=== PATIENT | female | born 1990 | race Caucasian/White ===

== ENCOUNTER → 2020-08-09 10:15 | Outpatient (CLI) | payer OTHER, SELFPAY ==
--- NOTE | ~2020-08-09 | US_ITS ---
EXAMINATION: US abdomen limited EXAM DATE: 08/09/2020 10:36 INDICATION: suspect cholecystitis, symptomatic gallstones. TECHNIQUE: Multiple grayscale and Doppler images of the abdomen right upper quadrant were obtained (b y a technologist who performed the scan) and subsequently reviewed. There is no prior study for judit rankin. FINDINGS: The pancreatic head and body are normal in appearance. The pancreatic tail is not visualized. There is echogenic liver parenchyma, hepatic steatosis. There are no focal liver lesions identified. Th ere is no evidence of intrahepatic biliary duct dilation. Portal venous flow was seen in the hepatop edal, normal direction and has normal Doppler waveform. No right-sided hydronephrosis. Common bile duct measures 4 mm, which is normal. The gallbladder wall is normal in thickness, with ex pected amount of distention. No sonographic evidence of pericholecystic fluid. There is no cholelit hiases. Technologist performing exam reports patient did not demonstrate sonographic Freitas's sign. Please note that this sign is less reliable in patients who have received pain medication. IMPRESSION: 1. Hepatic steatosis. Reviewed, dictated and finalized at location B. 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 Hepatic steatosis.
== END ==
PROVIDERS: PCP Family Medicine; Visit Provider Physician Assistant
DX: R10.11 Right upper quadrant pain (principal); K76.0 Fatty (change of) liver, not elsewhere classified
CPT/HCPCS: 76705

== ENCOUNTER 2020-08-26 07:39 | Outpatient (CLI) | payer OTHER, SELFPAY ==
--- NOTE | ~2020-08-26 | NM_ITS ---
NM hepatobiliary w pharm Procedure: Hepatobiliary scan performed following IV administration 5 mCi Tc 99m Choletec. At 60 min utes 2.3 mcg CCK administered IV for evaluation of gallbladder ejection fraction. Indication: Right upper quadrant abdominal pain Comparison: Ultrasound dated 08/09/2020 Findings: There is normal radiotracer uptake in the liver parenchyma with prompt excretion into the b iliary tract. Gallbladder visualized at 30 minutes. Small bowel visualized at 20 minutes. Gallbla dder ejection fraction measures 32 %. (normal is considered 10-90%, but most patients with gallbladde r dysfunction have GBEF of less than 35%) Impression: 1: Low gallbladder ejection fraction measuring 32%. Low GBEF is associated with gallbladder dysfunct ion, although not specific for acute or chronic cholecystitis. Reviewed, dictated and finalized at location B. Impression: 1: Low gallbladder ejection fraction measuring 32%. Low GBEF is associated wit h gallbladder dysfunction, although not specific for acute or chronic cholecyst itis.
== END 2020-08-26 07:40 | disposition home or self-care (01) ==
LOC: ANHIMG 07:41
PROVIDERS: PCP Family Medicine; Visit Provider Family Medicine
DX: R10.11 Right upper quadrant pain (principal); R10.13 Epigastric pain
CPT/HCPCS: 78227; A9537; J2805

== ENCOUNTER → 2020-09-12 02:49 | Outpatient (CLI) | payer OTHER, SELFPAY ==
[2020-09-12 19:42] LABS: SARS-CoV-2 RNA PCR Negative
== END ==
PROVIDERS: PCP Family Medicine; Visit Provider Surgery
DX: Z01.812 Encounter for preprocedural laboratory examination (principal); Z20.822 Contact with and (suspected) exposure to COVID-19
CPT/HCPCS: C9803; U0003; U0005

== ENCOUNTER 2020-09-12 09:32 | Outpatient (CLI) | payer OTHER, SELFPAY ==
[2020-09-12 10:43] LABS: Alanine Aminotransferase 24 U/L (4-35); Albumin Level 4.3 g/dL (3.5-5.1); Alkaline Phosphatase 79 U/L (38-126); Amylase 44 U/L (30-110); Aspartate Amino Transferase 24 U/L (14-36); Bilirubin,Total 0.2 mg/dL (0.2-1.3); Lipase 49 U/L (23-300)
== END 2020-09-12 09:33 | disposition home or self-care (01) ==
LOC: ANHSURGERY 09:35
PROVIDERS: PCP Family Medicine; Visit Provider Surgery
DX: Z01.812 Encounter for preprocedural laboratory examination (principal); K82.8 Other specified diseases of gallbladder
CPT/HCPCS: 36415; 80076; 82150; 83690; 86850; 86900; 86901

== ENCOUNTER 2020-09-15 00:43 | Day surgery (SDC) | payer OTHER, SELFPAY ==
[2020-09-07 11:39] VITALS: BMI 45.5
[2020-09-15] VITALS (23 sets, daily range): BP systolic 92–126; BP diastolic 51–72; PULSE 63–84; RESP 16–20; TEMP 36.3–37.1; O2SAT 97–100
[2020-09-15] MEDS: ACETAMINOPHEN 500 MG TABLET 1000 MG PO (10:17)
[2020-09-15] MEDS: LACTATED RINGERS 1,000 ML 30 ML IV CONT ×4 (10:32→16:30)
[2020-09-15] MEDS: KETOROLAC 15 MG/ML VIAL (*BKC) IV PUSH (10:35)
--- NOTE | 2020-09-15 11:04 | WPDANESEPPF ---
Anes - Initial Pre Proc Eval Procedure: Operation Date: 09/15/20 12:00 Proposed Procedures p Laparoscopic Cholecystectomy - Nissa Bernabe MD Date/Time: 09/15/20 11:04 Surgeon: Nissa Bernabe MD Pre Op Diagnosis: biliary dyskenisia Patient Data Age: 29 Gender: F Height: 5 ft 2.5 in Weight: 113.9 kg Last Vital Signs Temp 36.3 C L 09/15/20 09:56 Pulse 72 09/15/20 09:56 Resp 16 09/15/20 09:56 BP 124/72 09/15/20 09:56 Pulse Ox 100 09/15/20 09:56 Allergies Allergy/AdvReac Type Severity Reaction Status Date / Time Sulfa (Sulfonamide Allergy Severe Hives Verified 09/15/20 10:13 Antibiotics) Home Medications Medication Instructions Recorded Confirmed Type sertraline 50 mg tablet 50 mg PO DAILY tablet 08/03/20 09/15/20 History Patient hx anesthesia problems: none Family hx anesthesia problems: none PMFSH Past Medical History Medical History (Updated 09/15/20 @ 11:05 by Fernando Aguilar MD) Depression History of gastroesophageal reflux (GERD) Morbid obesity Surgical History Surgical History History of 2018 Hx of tonsillectomy 1995 Family History Family History Mother Rheumatoid arthritis Grandparent Family history of obesity Depression Hypertension Family history of alcoholism Malignant neoplasm of prostate, Onset Age: 60 Family history of irritable bowel syndrome Diabetes mellitus Family history of type 2 diabetes mellitus Father Family history of alcoholism Hypertension Depression Anxiety Other Family history of multiple sclerosis Social History Social History Smoking status: Never smoker Second hand tobacco smoke exposure: No Alcohol intake: former Alcohol use details: HASN'T HAD ANY IN 6 MONTHS Substance use: never Substance use type: does not use Living arrangements: with family 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 Questions were solicited and answers provided to the satisfaction of the patient/family/POA.
--- NOTE | 2020-09-15 11:59 | WPDHPUPDATE1 ---
History and Physical Update Update Date/Time: 09/15/20 11:59 History and Physical has been reviewed, including an updated exam of the patient. There are NO changes in the patient's condition. Risks, benefits, and alternatives have been discussed and questions answered. Patient agrees to proceed with procedure.
[2020-09-15] MEDS: ceFAZolin 2 GM/D5W 50 ML 2 GM/50 ML BAG IVPB (12:07)
[2020-09-15] MEDS: BUPIVACAINE/EPINEPHRINE 0.5% 30 ML VIAL INFILTRATE (12:33)
[2020-09-15] MEDS: HEMOSTATIC MATRIX (SURGIFLO with THROMBIN) KIT 1 KIT XX (13:43)
--- NOTE | 2020-09-15 14:08 | PM.PROC ---
Procedure Note - Detailed Date of procedure: 09/15/20 Pre-op diagnosis: biliary dyskenisia acute cholecystitis Post-op diagnosis: same Procedure performed: laparoscopic cholecystectomy Description of procedure: The patient was taken to the operating room placed in the supine position. After adequate induction of general anesthesia, the patient was prepped and draped in normal sterile fashion. A time-out was then performed to verify the patient's identity as well as the procedure being performed. I then made a 5 mm incision in the infraumbilical region. Through this, a Veress needle was placed into the peritoneal cavity and CO2 gas was then insufflated. After adequate pneumoperitoneum was achieved, the Veress needle was removed and a 5 mm optiview trocar was placed through this incision under direct visualization. I then placed the laparoscope through this trocar site and under direct visualization placed a further 12 mm subxiphoid port as well as 2 additional 5 mm ports in the right upper abdomen. The gallbladder was then identified and was noted to be moderately inflamed. I was able to place a grasper at the dome of the gallbladder and this was retracted anterior and cephalad up over the liver. A 2nd retractor was then placed at the infundibulum and retracted laterally, this allowed visualization of the triangle of Calot. I then was able to visualize the cystic duct in its entirety from its proximal insertion into the gallbladder, to its distal junction with the common hepatic/common bile duct junction. At this point, I carefully skeletonized the proximal cystic duct with the [place] dissector. I then clipped and transected the proximal cystic duct. Next I visualized the cystic artery. Again the artery was skeletonized, clipped, and transected. I then used the Bovie cautery to take down the peritoneal attachments of the gallbladder off the liver bed. Once the gallbladder specimen was completely detached, an endo-pouch was placed through the 12 mm port site. I then placed the gallbladder specimen into the Endo pouch and removed the endo-pouch from the 12 mm port site. The specimen will now be sent to pathology for further review. It was noted at this point that there was arterial bleeding at the inferior portion of the liver bed. I was able to control the bleeding with pressure applied by a Raytec sponge placed into the abdomen through the 12 mm port. The patient was noted to be slightly hypotensive and I emergently called for backup. Dr. العراقي was available and presented to the OR for additional assistance. Carefully retracting the liver and slowly removing the sponge, we were able to locate the bleeding vessel. Most likely, it was an aberant posterior artery off the cystic artery. We were then able to clip the artery and control the bleeding. I then copiously irrigated the right upper quadrant. Hemostasis was noted in the liver bed, the clips were noted to be in good position on both the cystic duct stump and the cystic artery stump, as well as this aberant posterior artery. No other pathology was noted in the right upper quadrant. I did place hemostatic agent in the liver bed given the previously noted bleeding. I also placed a 15 Fr DEE drain in the RUQ coming out the right lower 5 mm port site. I then moved the laparoscope to the subxiphoid port. No iatrogenic injury or other pathology was noted in the lower abdomen. I then closed the 12 mm trocar site under direct visualization using the Margarito cone and 0 Vicryl suture. At this point, the abdomen was desufflated and all ports removed. All port sites were then closed with 4.O Monocryl subcuticular sutures. Dermabond was placed on each incision. The patient tolerated the procedure well, was extubated in the operating room postoperative and will be transferred to the recovery room in stable condition. Implants: none Anesthesia: GETA Surgeon: Nissa Bernabe MD Sand Mill Operator Facing Sand: Malcom joel
[2020-09-15] MEDS: ONDANSETRON INJ 4 MG/2 ML VIAL IV PUSH ×2 (14:21→19:03)
[2020-09-15] MEDS: SCOPOLAMINE 1.5 MG PATCH TRANSDERM (15:00)
[2020-09-15] MEDS: diphenhydrAMINE HCl INJ 50 MG/ML VIAL 25 MG IV PUSH ×2 (15:00→16:11)
[2020-09-15] MEDS: fentaNYL CITRATE INJ (*CRX) 100 MCG/2 ML VIAL 25 MCG IV PUSH ×2 (15:42→15:46)
[2020-09-15] MEDS: DEXAMETHASONE SOD PHOS INJ 4 MG/ML VIAL 12 MG IV PUSH (16:23)
[2020-09-15 16:26] LABS: Hematocrit 31.5 % (37.0-47.0); Hemoglobin 10.3 g/dL (12.0-15.0); Mean Corpuscular HGB Conc 32.7 g/dl (32-36); Mean Corpuscular Hemoglobin 28.3 pg (26-34); Mean Corpuscular Volume 86.5 fl (80-100); Mean Platelet Volume 9.8 fl (7.4-10.4); Platelet Count Result 222 k/mm3 (150-375); Red Blood Count 3.64 M/mm3 (4.2-5.4); Red Cell Distribution Width 13.2 % (11.5-14.5); White Blood Count 16.1 K/mm3 (4.5-10.0)
--- NOTE | 2020-09-15 16:53 | SUR.PHASEI ---
1605- Dr. Bernabe rounding on patient in PACU and updated MD on patient's status at this time. Per Dr. Bernabe obtain CBC to check on patient's hemoglobin and hematocrit at this time. Updated him patient has had 4 liters of LR at this point. Will continue to monitor patient and update Dr. Bernabe on CBC once resulted and patient's status. 1653- Call to Dr. Bernabe and updated him patient has had 4.5 liters of LR at this time with HR in 70's, 99 % on room air, MAP 71 with BP of 103/59, RR 18. Hemoglobin and hematocrit stable at 10.3 and 31.5 from [address] Bernabe OK for transfer to IMU.
--- NOTE | 2020-09-15 17:03 | SUR.PHASEI ---
1703- SBAR faxed to IMU at this time and notified RN.
[2020-09-15] MEDS: LACTATED RINGERS 1,000 ML 100 ML IV CONT (17:57)
[2020-09-15] MEDS: HYDROcodone/acetaminophen (*CRX) 5-325 MG TABLET 1 TAB PO (17:58)
[2020-09-16] VITALS (7 sets, daily range): BP systolic 125–136; BP diastolic 63–69; PULSE 67–85; RESP 12–15; TEMP 36.1–36.9; O2SAT 99–100
[2020-09-16] MEDS: HYDROcodone/acetaminophen (*CRX) 5-325 MG TABLET 1 TAB PO ×2 (04:13→10:44)
[2020-09-16 05:47] LABS: Hemoglobin 9.6 g/dL (12.0-15.0); Mean Corpuscular HGB Conc 33.1 g/dl (32-36); Mean Corpuscular Hemoglobin 28.3 pg (26-34); Mean Corpuscular Volume 85.5 fl (80-100); Mean Platelet Volume 10.2 fl (7.4-10.4); Platelet Count Result 231 k/mm3 (150-375); Red Blood Count 3.39 M/mm3 (4.2-5.4); Red Cell Distribution Width 13.1 % (11.5-14.5); White Blood Count 13.1 K/mm3 (4.5-10.0)
[2020-09-16 06:00] LABS: Anion Gap 1 mmol/L (8-16); Blood Urea Nitrogen 7 mg/dL (7-17); Calcium 8.4 mg/dL (8.4-10.2); Carbon Dioxide 31 mmol/L (22-30); Chloride 104 mmol/L (98-107); Estimated CRCL calculation 122 ml/min; Estimated Glomerular Filt Rate > 60; Glucose 146 mg/dL (65-105); Potassium 4.4 mmol/L (3.4-5.0); Sodium 136 mmol/L (137-145)
[2020-09-16] MEDS: SERTRALINE HCL 50 MG TABLET PO (07:56)
--- NOTE | 2020-09-16 09:21 | PM.DS ---
DS: Admitting Diagnosis Admitting Diagnosis Admitting Diagnosis: chronic cholecystitis DS: Discharge Diagnosis Discharge Diagnosis (1) Chronic cholecystitis: Code(s): K81.1 - Chronic cholecystitis Status: Acute Assessment and Plan: s/p lap demetrio complicated by bleeding, please see full op report for details, doing well this am, ADAT, home c po analgesia, drain care, will see in office for drain removal early next week DS: Summary Hospital Course Reason for hospitalization: chronic cholecystitis, bleeding s/p lap demetrio Hospital Course: Pt is a 29 y/o F that presented to hospital for cholecystectomy for chronic cholecystitis on 09/15. Pt has lap demetrio complicated by bleeding for aberant artery, please see full op report for details. Pt was admitted for extended recovery given the bleeding. Pt has had no further issues since admit. Pt labs and vitals stable. Pt shey reg diet and will be d/c'd home c instructions for drain care. Pt sent c rx for po analgesia. Status at Discharge Functional status at discharge: independent ambulation Overall status at discharge: patient is progressing back to baseline Time Spent with Patient Time attestation: Total time spent providing and/or coordinating discharge services: Time spent: Less than 30 minutes Exam Const: General: cooperative, comfortable and no acute distress Orientation/consciousness: patient oriented x3 Resp: Effort & Inspection: normal respiratory effort Auscultation: clear to auscultation bilaterally Cardio: Rate: regular rate Rhythm: regular rhythm GI: Inspection: normal to inspection, distended and incision GI Palp: Yes Soft to palpation, Yes Tenderness to palpation present (GI) and No Guarding due to palpation present (GI) Other: soft, sl dist, carlitos TTP, incisions C/D/I, DEE c minimal s/s output DS: Data Data Completed and Pending Pending studies at discharge: Pending at discharge 09/15/20 12:33 Surgical [PTH] Routine Labs on day of discharge: Labs from last 24 hours 09/16/20 09/16/20 09/15/20 05:34 05:34 16:16 WBC 13.1 H 16.1 H RBC 3.39 L 3.64 L Hgb 9.6 L 10.3 L Hct 29.0 L 31.5 L MCV 85.5 86.5 MCH 28.3 28.3 MCHC 33.1 32.7 RDW 13.1 13.2 Plt Count 231 222 MPV 10.2 9.8 Sodium 136 L Potassium 4.4 Chloride 104 Carbon Dioxide 31 H Anion Gap 1 L BUN 7 Creatinine 0.70 Estim Creat Clear Calc 122 Estimated GFR > 60 Glucose 146 H Calcium 8.4 Discharge Plan Discharge Attending physician on discharge: Nissa Bernabe Discharging Clinician: Nissa Bernabe Anticipated Discharge Date/Time: 09/16/20 13:00 Patient Disposition: Home, Self-Care Activity: no shower and other - see discharge instructions Diet: as tolerated Wound Care Instructions: follow printed instructions Discharge Instructions: Remove the Scopolamine patch that was placed behind your ear in 72 hours or less. Wash your hands after touching. DISCHARGE INSTRUCTION SHEET FOR HERNIA, GALLBLADDER AND APPENDIX SURGERIES DR. BERNABE PATIENT TO TAKE HOME 1. May shower in 24 hours, no soaking in bath x 2weeks. 2. Call office for: Wound increasingly painful or bleeding Vomiting Fever of greater than 101 degrees 3. If no bowel movement for three days, take 1 oz. (30 ml) Milk of Magnesia or MiraLax 17g 1 to 2 times daily. 4. No heavy lifting > 10-15 pounds x 6 weeks for hernia repairs and 2 weeks for laparoscopic cholecystectomy or appendectomy. 5. No driving for 3 days or while taking narcotic pain medications. 6. Ice to surgical site for 48 hours (30 min on, then 30 min off). 7. Up walking 10-30 minutes three times per day. 8. Resume previous home medications. 9. Follow-up 10-14 days in office for wound check or as previously scheduled. [phone]) 10. Oral pain medications prescription to be sent to pharmacy.
--- NOTE | 2020-09-16 12:59 | WPDANESPN ---
Anes - Prog Note Post-Op Date/Time: 09/16/20 12:59 Cardiovascular status: normal Respiratory status: normal Airway patency: baseline Mental status: baseline Post-Op hydration status: normal Vital Signs: Last Vital Signs Temp 36.9 C 09/16/20 08:00 Pulse 85 09/16/20 10:00 Resp 12 09/16/20 08:00 BP 129/63 09/16/20 08:00 Pulse Ox 99 09/16/20 08:00 Pain Score (VAS): 0 I/O: Intake & Output 09/15/20 09/16/20 09/16/20 23:59 07:59 15:59 Intake Total 1000 1000 Output Total 580 6090 540 Balance 333 -255 -639 Laboratory Tests 09/16/20 05:34 09/16/20 05:34 09/15/20 09/16/20 09/16/20 16:16 05:34 05:34 WBC 16.1 H 13.1 H RBC 3.64 L 3.39 L Hgb 10.3 L 9.6 L Hct 31.5 L 29.0 L MCV 86.5 85.5 MCH 28.3 28.3 MCHC 32.7 33.1 RDW 13.2 13.1 Plt Count 222 231 MPV 9.8 10.2 Sodium 136 L Potassium 4.4 Chloride 104 Carbon Dioxide 31 H Anion Gap 1 L BUN 7 Creatinine 0.70 Estim Creat Clear Calc 122 Estimated GFR > 60 Glucose 146 H Calcium 8.4 Post-procedural complaints: none Patient Feedback: Patient satisfied with anesthetic care.
== END 2020-09-16 10:00 | disposition home or self-care (01) ==
LOC: ANHSURGERY 15:38 → ANHIMU 17:35 → ANHSURGERY 09-16 09:21 → ANHIMU 09-16 10:00
PROVIDERS: PCP Family Medicine; Visit Provider Surgery
PROC: 0FT44ZZ Resection of Gallbladder, Percutaneous Endoscopic Approach (ICD-10-PCS; CPT 47562; principal; 2020-09-15 12:00)
DX: K81.1 Chronic cholecystitis (principal); F32.9 Major depressive disorder, single episode, unspecified; K21.9 Gastro-esophageal reflux disease without esophagitis; Z87.891 Personal history of nicotine dependence; E66.01 Morbid (severe) obesity due to excess calories; Z68.42 Body mass index [BMI] 45.0-49.9, adult; R10.11 Right upper quadrant pain
CPT/HCPCS: 47562; 36415; 80048; 80076; 82150; 83690; 85027; 86850; 86900; 86901; 88304; A9270; C9803; J0330; J0690; J1100; J1200; J1885; J2250; J2405; J2704; J2710; J3010; J7030; J7120; U0003; U0005

== ENCOUNTER 2021-08-09 08:14 | Outpatient (CLI) | payer OTHER, SELFPAY ==
[2021-08-09 09:33] LABS: Hematocrit 33.1 % (37.0-47.0); Hemoglobin 10.6 g/dL (12.0-15.0)
[2021-08-09 09:49] LABS: Glucose 1 Hour PP 50gm Dose 168 mg/dL
[2021-08-09 10:34] LABS: HIV 1/2 Ab P24 Ag Result Negative (Negative)
[2021-08-09] MEDS: RHO(D) IMMUNE GLOBULIN 300 MCG/2 ML SYRINGE IM (13:22)
== END 2021-08-09 08:15 | disposition home or self-care (01) ==
PROVIDERS: PCP Family Medicine; Visit Provider Obstetrics & Gynecology
DX: O36.0130 Maternal care for anti-D [Rh] antibodies, third trimester, not applicable or unspecified (principal); Z3A.00 Weeks of gestation of pregnancy not specified
CPT/HCPCS: 36415; 82947; 85014; 85018; 85461; 86703; 90384; 96372; G0432; J2790

== ENCOUNTER 2021-10-10 20:54 | Observation (INO) | payer OTHER, SELFPAY ==
--- NOTE | 2021-10-10 22:36 | OBADM ---
This patient, Candy Sun, admitted to the OB room Labor/Delivery/Recovery 120 for observation. Patient/family oriented to hospital policies and general routines including ID bracelet, bed and alarms, visiting hours, pain management, procedures, bathroom and other care routines, personal items, smoking policy, room service/diet, and visiting hours. Patient/Family are encouraged to report perceived risks to care and to ask questions if they do not understand what they are told or what they should do.
[2021-10-10 22:55] VITALS: BMI 46.3
--- NOTE | 2021-10-30 15:52 | PM.OBTRLD ---
OB - Triage/Final Diagnosis Visit Information Comments/Additional reasons for admission: I have assessed the risk for this patient, Candy Sun, and determined that she would benefit from observation care. Final Diagnosis (1) False labor: Code(s): O47.9 - False labor, unspecified Status: Acute
== END 2021-10-10 22:58 | disposition home or self-care (01) ==
PROVIDERS: Admitting Provider Obstetrics & Gynecology; PCP Family Medicine; Visit Provider Obstetrics & Gynecology
DX: O47.9 False labor, unspecified (principal); Z3A.00 Weeks of gestation of pregnancy not specified
CPT/HCPCS: G0378; G0379

== ENCOUNTER 2021-10-18 09:42 | Outpatient (CLI) | payer OTHER, SELFPAY ==
[2021-10-18 09:58] LABS: Hematocrit 34.7 % (37.0-47.0); Mean Corpuscular HGB Conc 31.7 g/dl (32-36); Mean Corpuscular Hemoglobin 26.1 pg (26-34); Mean Corpuscular Volume 82.2 fl (80-100); Mean Platelet Volume 10.1 fl (7.4-10.4); Platelet Count Result 238 k/mm3 (150-375); Red Blood Count 4.22 M/mm3 (4.2-5.4); Red Cell Distribution Width 14.7 % (11.5-14.5); White Blood Count 8.5 K/mm3 (4.5-10.0)
[2021-10-18 11:53] LABS: Rapid Plasma Reagin Non-Reactive (NonReactive)
== END 2021-10-18 09:43 | disposition home or self-care (01) ==
LOC: ANHLAB 09:43
PROVIDERS: PCP Family Medicine; Visit Provider Obstetrics & Gynecology
DX: Z34.93 Encounter for supervision of normal pregnancy, unspecified, third trimester (principal); Z3A.00 Weeks of gestation of pregnancy not specified
CPT/HCPCS: 36415; 85027; 86592; 86850; 86900; 86901

== ENCOUNTER 2021-10-19 05:22 | Inpatient (IN) | payer OTHER, SELFPAY ==
--- NOTE | 2021-10-06 13:52 | PC.NURSE ---
Verified with OR schedule and patient--C/S on 10/26/21 at 0730 Patient given requisition for lab draw on 10/25/21
[2021-10-19] VITALS (61 sets, daily range): BP systolic 81–174; BP diastolic 43–144; PULSE 65–205; RESP 16–18; TEMP 36.2–36.6; O2SAT 97–100; BMI 45.6
--- OUTSIDE RECORDS SUMMARY | 2021-10-19 05:28 | XMS_ITS | Encounter Summary ---
:1990 Author Care Team Providers Name Role Phone Elle Gunter MD Primary Care Provider [phone] Reason for Visit None recorded. Assessment and Plan 1. Gestational diabetes mellitus , class A>1< ? non-stress test Discussion Note: None recorded.Patient educational handouts: No information available. Plan of Care Reminders Provider Appointments Surg Post 10/26/2021 Bo Schroeder Op 11:15AM MD [facility] ? 3Hr on or around Cornelius prakash Glucose 11/13/2021 MD [facility] Lab None ? ? recorded. Referral None ? ? recorded. Procedures None ? ? recorded. Surgeries None ? ? recorded. Imaging Non-stress 2021 Yessy parr Test Medications Name Start Date ? ? ID NOW COVID-19 Test Kit ? TEST DIRECTED TODAY OneTouch Delica Plus Lancet 33 gauge ? OneTouch Verio Reflect Meter ? OneTouch Verio test strips ? TEST BLOOD SUGAR FOUR TIMES DAILY. FAST ING AND AFTER BREAKFAST, LUNCH, AND DINNER sertraline 50 mg tablet ? TAKE 1 TABLET BY MOUTH EVERY DAY ursodiol 300 mg capsule ? TAKE 1 CAPSULE BY MOUTH TWICE DAILY Medications Administered None recorded. Vitals Weight Blood Pressure 251 lbs 124/77 mm[Hg] Results
--- OUTSIDE RECORDS SUMMARY | 2021-10-19 05:28 | XMS_ITS ---
:1990 Author Care Team Providers Name Role Phone SHA JACKSON MD Primary Care Provider [phone] Allergies Code Code Name Reaction Severity Status Onset System Sulfamethoxazole-tri ? ? Active ? methoprim Zithromax Z-sandro ? ? Active ? 90654 RxNorm Sulfamethoxazole ? ? Deactivated ? 96317 RxNorm Trimethoprim ? ? Deactivated ? Medications Name Status Start Date Stop Date ? ? alprazolam 0.5 mg tablet Completed ? 021 TK ONE T PO TWO HOURS BEFORE PROCEDURE amoxicillin 875 mg-potassium Completed ? clavulanate 125 mg tablet cranberry 400 mg capsule Completed ? 013 hydrocodone 10 mg-acetaminophen Completed ? 02/15/2021 325 mg tablet hydrocodone 5 mg-acetaminophen 325 mg tablet Completed ? 02/15/2021 TAKE 1 TABLET BY MOUTH EVERY 6 HOURS NEEDED FOR PAIN ibuprofen 800 mg tablet Completed ? 02/16/20 21 TK 1 T PO 2 HOURS BEFORE THE PROCEDURE ID NOW COVID-19 Test Kit Active ? Not shelly ilable TEST DIRECTED TODAY Lo Loestrin Fe 1 mg-10 mcg (24)/10 mcg (2) tablet Completed 06/23/2013 02/12/2014 take 1 tablet by oral route every day Loestrin 24 Fe 1 mg-20 mcg (24)/75 mg (4) tablet Completed 03/23/2013 03/23/2013 take 1 tablet by oral route every day Microgestin 1/20 (21) 1 mg-20 mcg tablet Completed 013 06/04
--- OUTSIDE RECORDS SUMMARY | 2021-10-19 05:28 | XMS_ITS | Encounter Summary ---
:1990 Author Care Team Providers Name Role Phone Elle Gunter MD Primary Care Provider [phone] Reason for Visit OB visit ob [id number] edc 11/01/2021 lmp 01/28/2021 Assessment and Plan Assessment Note Patient is ___weeks . Discu ssed plan. 1. Routine care Discussion Note: None recorded.Patient educational handouts: No information available. Plan of Care Reminders Provider Appointments Surg Post 10/26/2021 Bo Schroeder Op 11:15AM MD [facility] ? 3Hr on or around Cornelius prakash Glucose 11/13/2021 MD [facility] Lab None ? ? recorded. Referral None ? ? recorded. Procedures None ? ? recorded. Surgeries None ? ? recorded. Imaging None ? ? recorded. Medications Name Start Date ? ? ID [...]
--- OUTSIDE RECORDS SUMMARY | 2021-10-19 05:28 | XMS_ITS | Encounter Summary ---
:1990 Author Care Team Providers Name Role Phone Elle Gunter MD Primary Care Provider [phone] Reason for Visit None recorded. Assessment and [...] Surgeries None ? ? recorded. Imaging Non-stress 10/03/2021 Yessy parr Test Medications Name Start Date [...] Administered None recorded. Vitals Weight Blood Pressure 248 lbs 120/76 mm[Hg] Results
--- OUTSIDE RECORDS SUMMARY | 2021-10-19 05:28 | XMS_ITS | Encounter Summary ---
:1990 Author Care Team Providers Name Role Phone Elle Gunter MD Primary Care Provider [phone] Reason for Visit OB visit Assessment and Plan Assessment Note Patient is ___weeks . Discu ssed plan. 1. 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 Plan of Care Reminders Provider Appointments Surg Post 10/26/2021 Bo Schroeder Op 11:15AM MD [facility] ? 3Hr on or around Cornelius S cott Glucose 11/13/2021 MD [facility] Lab Bile 09/29/2021 Central Dup age Acids, Total, Serum Hospital ([facility]) Referral None ? ? recorded. Procedures None [...] ? TAKE 1 CAPSULE BY MOUTH TWICE CELINE
--- OUTSIDE RECORDS SUMMARY | 2021-10-19 05:28 | XMS_ITS | Encounter Summary ---
:1990 Author Care Team Providers Name Role Phone Elle Gunter MD Primary Care Provider [phone] Reason for Visit OB visit Assessment and [...] TWICE DAILY Medications Administered None recorded. Vitals Height Weight BMI Blood Pressure 5 ft
--- OUTSIDE RECORDS SUMMARY | 2021-10-19 05:28 | XMS_ITS | Encounter Summary ---
:1990 Author Care Team Providers Name Role Phone Elle Gunter MD Primary Care Provider [phone] Reason for Visit None recorded. Assessment and [...] Surgeries None ? ? recorded. Imaging Non-stress 10/13/2021 Yessy parr Test Medications Name Start Date [...] TWICE DAILY Medications Administered None recorded. Vitals None recorded. Results Lab Results None recorded. Allergi
--- OUTSIDE RECORDS SUMMARY | 2021-10-19 05:28 | XMS_ITS | Encounter Summary ---
:1990 Author Care Team Providers Name Role Phone Elle Gunter MD Primary Care Provider [phone] Reason for Visit None recorded. Assessment and [...] Surgeries None ? ? recorded. Imaging Non-stress 10/06/2021 Yessy parr Test Medications Name Start Date [...] None recorded. Results Lab Results None recorded. Leandro
--- OUTSIDE RECORDS SUMMARY | 2021-10-19 05:28 | XMS_ITS | Encounter Summary ---
:1990 Author Care Team Providers Name Role Phone Elle Gunter MD Primary Care Provider [phone] Reason for Visit OB visit Assessment and [...] Height Weight BMI Blood Pressure 5 ft 2
--- OUTSIDE RECORDS SUMMARY | 2021-10-19 05:28 | XMS_ITS | Encounter Summary ---
:1990 Author Care Team Providers Name Role Phone Elle Gunter MD Primary Care Provider [phone] Reason for Visit None recorded. Assessment and [...] Surgeries None ? ? recorded. Imaging Non-stress 09/29/2021 Yessy parr Test Medications Name Start Date [...] None recorded. Results Lab Results None recorded. Allerg
--- OUTSIDE RECORDS SUMMARY | 2021-10-19 05:28 | XMS_ITS | Encounter Summary ---
:1990 Author Care Team Providers Name Role Phone Elle Gunter MD Primary Care Provider [phone] Reason for Visit None recorded. Assessment and [...] Surgeries None ? ? recorded. Imaging Non-stress 10/17/2021 Yessy parr Test Medications Name Start Date [...]
--- OUTSIDE RECORDS SUMMARY | 2021-10-19 05:28 | XMS_ITS | Encounter Summary ---
:1990 Author Care Team Providers Name Role Phone Elle Gunter MD Primary Care Provider [phone] Reason for Visit None recorded. Assessment and [...] Surgeries None ? ? recorded. Imaging Non-stress 09/26/2021 Yessy parr Test Medications Name Start Date [...]
--- OUTSIDE RECORDS SUMMARY | 2021-10-19 05:28 | XMS_ITS | Encounter Summary ---
:1990 Author Care Team Providers Name Role Phone Elle Gunter MD Primary Care Provider [phone] Reason for Visit None recorded. Assessment and Plan 1. Maternal obesity complicating , childbirth and the puerperium, antepartum ? non-stress test Discussion Note: None recorded.Patient educational handouts: No information available. Plan of Care Reminders Provider Appointments Surg Post 10/26/2021 Bo Schroeder Op 11:15AM MD [facility] ? 3Hr on or around Cornelius prakash Glucose 11/13/2021 MD [facility] Lab None ? ? recorded. Referral None ? ? recorded. Procedures None ? ? recorded. Surgeries None ? ? recorded. Imaging Non-stress 09/22/2021 Yessy parr Test Medications Name Start Date [...]
--- OUTSIDE RECORDS SUMMARY | 2021-10-19 05:29 | XMS_ITS | Encounter Summary ---
:1990 Author Care Team Providers Name Role Phone Elle Gunter MD Primary Care Provider [phone] Reason for Visit None recorded. Assessment and Plan Assessment Note Diet Teaching 1. Gestational diabetes mellitus , class A>1< Pt requested diet teaching ove r the phone due to her work schedule. Diet teaching completed. Carb counts for meal s and snacks reviewed. Pt instructed on how to read nutritional labels and instructe d on researching carb counts for fresh fruits and vegetables. Pt will be provided with print outs with some fresh food carb counts next week during her OB appt. Pt instruc cam on online resources for checking fresh food serving sizes and carb counts. Pt i nstructed on blood sugar level goals and importance of checking blood sugar and k eeping blood sugar log. Pt instructed on high protein low carb and provided with food recommendations. 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 Pt specifically asked about caffeine and black coffee and recommenda tions were discussed. Pt has an appt scheduled with SB for next week to revie w her BS log. Pt verbalized understanding of information discussed. Reina maravilla RN Discussion Note: None recorded.Patient educational handouts: No information available. Plan of Care Reminders Provider Appointments Surg Post 10/26/2021 Bo Schroeder Op 11:15AM MD Prudence ? 3Hr on or around Cornelius prakash Glucose 11/13/2021 MD [facility] Lab None ? ? recorded.
--- OUTSIDE RECORDS SUMMARY | 2021-10-19 05:29 | XMS_ITS | Encounter Summary ---
:1990 Author Care Team Providers Name Role Phone Elle Gunter MD Primary Care Provider [phone] Reason for Visit OB visit Assessment and [...]
--- OUTSIDE RECORDS SUMMARY | 2021-10-19 05:29 | XMS_ITS | Encounter Summary ---
:1990 Author Care Team Providers Name Role Phone Elle Gunter MD Primary Care Provider [phone] Reason for Visit None recorded. Assessment and Plan 1. Maternal obesity complicating , childbirth and the puerperium, antepartum ? US, obstetric, biophysical profile + non-stress test Discussion Note: None recorded.Patient educational handouts: No information available. Plan of Care Reminders Provider Appointments Surg Post Op 10/26/2021 Ro meliza Schroeder 11:15AM MD Prudence ? 3Hr Glucose on or around Srikanth moraima Schroeder 11/13/2021 MD [facility] Lab None ? ? recorded. Referral None ? ? recorded. Procedures None ? ? recorded. Surgeries None ? ? recorded. Imaging US, 09/12/2021 [place] [facility], Biophysical Profile + Non-stress Test Medications Name Start Date ? ? [...]
--- OUTSIDE RECORDS SUMMARY | 2021-10-19 05:29 | XMS_ITS | Encounter Summary ---
:1990 Author Care Team Providers Name Role Phone Elle Gunter MD Primary Care Provider [phone] Reason for Visit None recorded. Assessment and Plan 1. Maternal obesity complicating , childbirth and the puerperium, antepartum ? US, obstetric, follow-up Discussion Note: None recorded.Patient educational handouts: No information available. Plan of Care Reminders Provider Appointments Surg Post 10/26/2021 Bo Schroeder Op 11:15AM MD Prudence ? 3Hr on or around Corneliusmoraima prakash Glucose 11/13/2021 MD [facility] Lab None ? ? recorded. Referral None ? ? recorded. Procedures None ? ? recorded. Surgeries None ? ? recorded. Imaging US, 08/23/2021 [place] [facility], Follow-up Medications Name Start Date ? ? ID [...] DAILY Medications Administered None recorded. Vitals None recorde
--- OUTSIDE RECORDS SUMMARY | 2021-10-19 05:29 | XMS_ITS | Encounter Summary ---
:1990 Author Care Team Providers Name Role Phone Elle Gunter MD Primary Care Provider [phone] Reason for Visit OB visit Assessment and [...]
--- OUTSIDE RECORDS SUMMARY | 2021-10-19 05:29 | XMS_ITS | Encounter Summary ---
:1990 Author Care Team Providers Name Role Phone Elle Gunter MD Primary Care Provider [phone] Reason for Visit OB visit Assessment and Plan Assessment Note Patient is ___weeks . Discu ssed plan. 1. Itching of skin ? bile acids, total, serum ? CMP, serum or plasma 2. Routine care Discussion Note: None recorded.Patient educational handouts: No information available. Plan of Care Reminders Provider Appointments Surg Post 10/26/2021 Bo Schroeder Op 11:15AM MD Prudence ? 3Hr on or around Cornelius [facility] Glucose 11/13/2021 MD [facility] Lab Bile 09/12/2021 [facility], Total, [facility] [facility] ? CMP, Serum 09/12/2021 [facility] Referral None ? ? recorded. Procedures None ? ? recorded. Surgeries None ? ? recorded. Imaging None ? ? recorded. Medications Name Start Date ? ? ID NOW COVID-19 Test Kit ? TEST DIRECTED TODAY OneTouch Delica Plus Lancet 33 gauge ? OneTouch Verio Reflect Meter ? OneTouch Verio test strips ?
--- OUTSIDE RECORDS SUMMARY | 2021-10-19 05:29 | XMS_ITS | Encounter Summary ---
:1990 Author Care Team Providers Name Role Phone Elle Gunter MD Primary Care Provider [phone] Reason for Visit None recorded. Assessment and Plan 1. condition affecting obs tetrical care of mother ? US, obstetric, biophysical profile Discussion Note: None recorded.Patient educational handouts: No information available. Plan of Care Reminders Provider Appointments Surg Post Op 10/26/2021 Ro meliza Schroeder 11:15AM MD Prudence ? 3Hr Glucose on or around Srikanth kavyaneela Schroeder 11/13/2021 MD [facility] Lab None ? ? recorded. Referral None ? ? recorded. Procedures None ? ? recorded. Surgeries None ? ? recorded. Imaging US, 09/08/2021 [place] [facility], Biophysical Profile Medications Name Start Date ? ? ID [...]
--- OUTSIDE RECORDS SUMMARY | 2021-10-19 05:29 | XMS_ITS | Encounter Summary ---
:1990 Author Care Team Providers Name Role Phone Elle Gunter MD Primary Care Provider [phone] Reason for Visit None recorded. 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 Pt specifically asked about caffeine and black coffee and recommenda tions were discussed. Pt has an appt scheduled with SB for next week to revie w her BS log. Pt verbalized understanding of information discussed. Reina maravilla RN ? non-stress test Discussion Note: None recorded.Patient educational handouts: No information available. Plan of Care Reminders Provider Appointments Surg Post 10/26/2021 Bo Schroeder Op 11:15AM MD Prudence ? 3Hr on or around Cornelius prakash Glucose 11/13/2021 MD [facility] Lab None ? ? recorded. Referral None ? ?
--- OUTSIDE RECORDS SUMMARY | 2021-10-19 05:29 | XMS_ITS | Encounter Summary ---
:1990 Author Care Team Providers Name Role Phone Elle Gunter MD Primary Care Provider [phone] Reason for Visit None recorded. Assessment and Plan 1. Uterine fibroids affecting pr egnancy ? US, obstetric, follow-up Discussion Note: None recorded.Patient educational handouts: No information available. Plan of Care Reminders Provider Appointments Surg Post 10/26/2021 Bo Schroeder Op 11:15AM MD Prudence ? 3Hr on or around Cornelius prakash Glucose 11/13/2021 MD [facility] Lab None ? ? recorded. Referral None ? ? recorded. Procedures None ? ? recorded. Surgeries None ? ? recorded. Imaging US, 07/26/2021 [place] [facility], Follow-up Medications Name Start Date ? [...]
--- OUTSIDE RECORDS SUMMARY | 2021-10-19 05:29 | XMS_ITS | Encounter Summary ---
:1990 Author Care Team Providers Name Role Phone Elle Gunter MD Primary Care Provider [phone] Reason for Visit None recorded. 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 Pt specifically asked about caffeine and black coffee and recommenda tions were discussed. Pt has an appt scheduled with SB for next week to revie w her BS log. Pt verbalized understanding of information discussed. Reina maravilla RN ? US, obstetric, follow-up Discussion Note: None recorded.Patient educational handouts: No information available. Plan of Care Reminders Provider Appointments Surg Post 10/26/2021 Bo Schroeder Op 11:15AM MD Prudence ? 3Hr on or around Cornelius prakash Glucose 11/13/2021 MD [facility] Lab None ? ? recorded. Referral None ? ?
--- OUTSIDE RECORDS SUMMARY | 2021-10-19 05:29 | XMS_ITS | Encounter Summary ---
:1990 Author Care Team Providers Name Role Phone Elle Gunter MD Primary Care Provider [phone] Reason for Visit None recorded. Assessment and [...] Surgeries None ? ? recorded. Imaging Non-stress 09/08/2021 Y[facility] parr Test Medications Name Start Date [...] None recorded. Vitals None recorded. Results Lab R
--- OUTSIDE RECORDS SUMMARY | 2021-10-19 05:29 | XMS_ITS | Encounter Summary ---
:1990 Author Care Team Providers Name Role Phone Elle Gunter MD Primary Care Provider [phone] Reason for Visit OB visit Assessment and Plan 1. Mixed anxiety and depressive disorder 2. Uterine leiomyoma 3. Maternal obesity complicating , childbirth and the puerperium, antepartum Discussion Note: None recorded.Patient educational handouts: No information available. Plan of Care Reminders Provider Appointments Surg Post 10/26/2021 Bo Schroeder Op 11:15AM MD Prudence ? 3Hr on or around Corneliusneela Pruett 11/13/2021 MD [facility] Lab None ? ? [...]
--- OUTSIDE RECORDS SUMMARY | 2021-10-19 05:29 | XMS_ITS | Encounter Summary ---
:1990 Author Care Team Providers Name Role Phone Elle Gunter MD Primary Care Provider [phone] Reason for Visit OB visit Assessment and [...]
--- NOTE | 2021-10-19 06:09 | LDADM ---
This patient, Candy Sun, was admitted to Labor/Delivery/Recovery 120 on 10/19/21 at 05:22. Plans for labor, pain management and were discussed with patient. Patient/family oriented to hospital policies and general routines including ID bracelet, bed and alarms, visiting hours, pain management, procedures, bathroom and other care routines, personal items, smoking policy, room service/diet and guest tray routines, infant security routines, and visiting hours. Patient/Family are encouraged to report perceived risks to care and to ask questions if they do not understand what they are told or what they should do. See OBIX for further documentation.
[2021-10-19] MEDS: LACTATED RINGERS 1,000 ML 125 ML IV CONT (06:16)
[2021-10-19 06:24] LABS: Glucose Point of Care 87 mg/dl (65-105)
--- NOTE | 2021-10-19 06:57 | PM.IMHP ---
H&P: HPI History of Present Illness Date/Time: 10/19/21 06:57This patient is a 31-year-old multiparous female with a previous delivery at 38 weeks gestation. Her is complicated by cholestasis of . We agreed to deliver 30 weight weeks for cholestasis of . She is to have repeat delivery. She understands that injuries may occur during the surgery that result in hospitalization, more surgery, and severe illness. She has who understands there is risk of infection and hemorrhage. She denies any nausea, vomiting, fever, chills. She denies any chest pain or shortness of breath. She denies any contractions or loss of fluid. She denies any vaginal bleeding. Chief Complaint: Cholestasis of Review of Systems Review of Systems: All systems reviewed & are unremarkable except as noted in HPI and below Constitutional: Constitutional: Denies chills, Denies fatigue, Denies fever(s) and Denies weakness Eyes: Eyes: Denies blurry vision, Denies change in vision, Denies loss of peripheral vision, Denies loss of vision, Denies other visual disturbances and Denies eye pain ENT: Denies vertigo, Denies dizziness, Denies hearing loss, Denies mouth pain, Denies nasal obstruction, Denies neck mass and Denies neck pain Cardiovascular: Cardiovascular: Denies chest pain, Denies diaphoresis, Denies syncope, Denies leg edema and Denies dyspnea Respiratory: Respiratory: Denies chest congestion, Denies cough, Denies hemoptysis, Denies dyspnea and Denies wheezing Gastrointestinal: Gastrointestinal: Denies abdominal pain, Denies constipation, Denies diarrhea, Denies nausea and Denies vomiting Genitourinary: Genitourinary: Denies hematuria, Denies change in libido, Denies nocturia, Denies genital lesions, Denies flank pain and Denies urinary urgency Musculoskeletal: Musculoskeletal: Denies abnormal gait, Denies back pain, Denies myalgias, Denies arthralgias, Denies joint swelling, Denies muscle weakness and Denies neck pain Integumentary/Breasts: Skin/Breast: Denies swelling, Denies breast pain, Denies breast mass, Denies dry skin, Denies nipple discharge, Denies unusual bruising and Denies jaundice Neurologic: Denies Neuro-related abnormal movements, Denies Abnormal speech present, Denies abnormal gait, Denies behavioral changes, Denies confusion, Denies vertigo, Denies dizziness, Denies syncope, Denies loss of vision, Denies memory loss, Denies convulsions and Denies weakness Psychiatric: Psychiatric: Denies abnormal sleep pattern, Denies behavioral changes, Denies change in libido, Denies confusion, Denies depression, Denies anhedonia and Denies memory loss Endocrine: Endocrine: Reports no additional endocrine complaints, Denies change in libido and Denies fatigue Hematologic/Lymphatic: Hematologic/Lymphatic: Reports no additional hematologic/lymphatic complaints Allergic/Immunologic: Allergic/Immunologic: Reports no additional allergic/immunologic complaints and Denies wheezing [facility] Past Medical History Medical History Depression History of gastroesophageal reflux (GERD) Morbid obesity Surgical History Surgical History History of 2018 Hx laparoscopic cholecystectomy 09/15/20 Hx of tonsillectomy 1995 Family History Family History (Updated 10/06/21 @ 13:35 by Jered Barreto RN) Mother Rheumatoid arthritis Grandparent Malignant neoplasm of prostate, Onset Age: 60 Diabetes mellitus Depression Family history of obesity Family history of type 2 diabetes mellitus Family history of alcoholism Hypertension Lung cancer Father Anxiety Depression Family history of alcoholism Hypertension Other Family history of multiple sclerosis Social History Social History Smoking status: Never smoker Second hand t
--- NOTE | 2021-10-19 06:59 | WPDHPUPDATE1 ---
History and Physical Update Update Date/Time: 10/19/21 06:59 History and Physical has been reviewed, including an updated exam of the patient. There are NO changes in the patient's condition. Risks, benefits, and alternatives have been discussed and questions answered. Patient agrees to proceed with procedure.
--- NOTE | 2021-10-19 07:02 | WPDANESEPP ---
Anes - Eval Pre Procedure Procedure: Operation Date: 10/19/21 07:30 Proposed Procedures p Repeat Section - Kaitlynn Foss MD Date/Time: 10/19/21 07:02 Surgeon: [facility] Preop Diagnosis: Previous c section Pre Op Diagnosis: C/S Patient Data Age: 31 Gender: F Height: 1.57 m Weight: 113 kg Last Vital Signs Pulse 83 10/19/21 05:46 BP 123/73 10/19/21 05:46 Allergies Allergy/AdvReac Type Severity Reaction Status Date / Time Sulfa (Sulfonamide Allergy Severe Hives Verified 09/21/20 10:41 Antibiotics) azithromycin Allergy Abdominal Verified 10/06/21 13:30 Pain Home Medications Medication Instructions Recorded Confirmed Type sertraline 50 mg tablet 50 mg PO DAILY tablet 08/03/20 10/19/21 History prenat.vits,justin,cvp-jhhw-gpwqs 1 tablet PO DAILY 10/06/21 10/19/21 History ursodiol 300 mg PO BID 10/06/21 10/19/21 History Laboratory Tests 10/19/21 06:20 POC Capillary Glucose 87 mg/dl mg/dl (65-105) Patient hx anesthesia problems: none Family hx anesthesia problems: none Results Review: All pre-operative results and documents have been reviewed as part of the pre-operative evaluation. [facility] Past Medical History Medical History (Updated 10/19/21 @ 07:07 by Vasquez Teixeira CRNA) Anxiety Depression Gestational diabetes History of gastroesophageal reflux (GERD) Morbid obesity and not yet delivered STD (female) Surgical History Surgical History History of 2018 Hx laparoscopic cholecystectomy 09/15/20 Hx of tonsillectomy 1995 Family History Family History (Updated 10/06/21 @ 13:35 by eJred Barreto RN) Mother Rheumatoid arthritis Grandparent Malignant neoplasm of prostate, Onset Age: 60 Diabetes mellitus Depression Family history of obesity Family history of type 2 diabetes mellitus Family history of alcoholism Hypertension Lung cancer Father Anxiety Depression Family history of alcoholism Hypertension Other Family history of multiple sclerosis Social History Social History Smoking status: Never smoker Second hand tobacco smoke exposure: No Alcohol intake: former Alcohol use details: HASN'T HAD ANY IN 6 MONTHS Substance use: never Substance use type: does not use Other substance usage details: Low carb diet 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
[2021-10-19] MEDS: ceFAZolin 2 GM/D5W 50 ML 2 GM/50 ML BAG IVPB (07:22)
[2021-10-19] MEDS: KETOROLAC 30 MG/ML VIAL (*BKC) 15 MG IV PUSH (07:55)
--- NOTE | 2021-10-19 08:12 | W.PM.PROC2 ---
Procedure Note - Detailed Date of Procedure 10/19/21 Pre-op Diagnosis Previous , cholestasis of , 38 weeks gestation Post-op Diagnosis Same Procedure Performed Low-transverse section Surgeon Kaitlynn Foss MD Anesthesia Spinal Indications Previous , cholestasis Findings Normal gestational maternal anatomy, average size infant, normal Apgars. Description of Procedure The patient was taken the operating room. She was prepped and draped in dorsal supine position with a leftward tilt. This was done after spinal anesthetic was applied. A low-transverse skin incision was made and carried down till of the fascia with the knife. The fascial incision was made with the knife. The fascial incision was extended laterally with Bryant scissors. The fascia was tented upward superiorly and inferiorly the rectus muscles were dissected off bluntly. The rectus muscles were the midline. The preperitoneal fat and peritoneum were dissected open bluntly at the superior aspect of the rectus muscles. The peritoneal incision was extended superior and inferior with good position of bladder. The uterine incision was made with a scalpel down to the level of the amniotic cavity. The amniotic cavity was entered bluntly. The infant was delivered. The cord was clamped and cut and the was handed off to waiting pediatric staff. Cord bloods were obtained. The placenta was removed manually. The uterus was exteriorized. The uterus was cleared of all clots, debris and membranes. The uterus was closed in 0 Vicryl running lock fashion. An imbricating over a was placed along the incision line as well. The uterus was returned to the abdomen. The gutters were cleared of all clots and debris. The fascia was closed with 0 Vicryl running fashion. The subcutaneous tissue was irrigated pinpoint bleeders were cauterized. The skin was closed with subcuticular absorbable corbin. The skin incision line was covered with glue. The patient tolerated the procedure well. She has taken recovery room in stable condition. Sponge lap and needle counts were correct x2. Drains No Packing No Pathology None sent Complications No immediate complications Condition Stable Disposition PACU
[2021-10-19] MEDS: OXYTOCIN 30 UNITS/NS 500 ML 30 UNITS/500 ML BAG 125 UNITS IV CONT (10:01)
--- NOTE | 2021-10-19 10:49 | OBPPTRN ---
Patient transferred to post room #285 via stretcher. Support person and baby present. Oriented to unit, room, information board, rooming in, admission packet and security measures. Patient verbalizes understanding.
[2021-10-19] MEDS: DEXTROSE 5%/0.45% SOD CHL 1,000 ML 125 ML IV CONT (14:30)
--- NOTE | 2021-10-19 15:49 | PC.NURSE ---
[id number] Introductions were made, then consulted with patient to assess needs related to . Mother led the conversation with her experience feeding her infant so far. Mother works well with her with encouragement and education. Encouraged understanding of the benefits of skin to skin (unwrapping and placing vertically on her chest), responsive feeding and how to watch for early feeding signs, frequency of feeding on demand about every 8-12 times in 24 hours (every 2-3 hours), milk production, duration of feeding, signs of adequate intake/output and how to record on the feeding sheet. Breast pump provided due to mother's request due to that is what she did with the last baby. Instructions given on cleaning, care, usage, there should be no pain, pumping schedule for milk production, collection, and storage of human milk. Parents are encouraged to record pumping schedule on the feeding sheet. Patient was assessed for correct placement, flange size, to pump for comfort and nipple stretching/stimulation for adequate milk production. Mother voiced understanding of the education shared. returned to mother after blood sugar testing. Reviewed positioning and ear, shoulder, hip alignment, supporting the breast, asymmetrical latch (off-center), and leading with the chin with a big open side gape. Infant attempted to latch optimally to the left breast in football position. Infant was unable to maintain latch without discomfort to mother. Nipple care reviewed with optimal latch and good positioning. Infant has a wide open gape but nipple goes into the breast with infant's attempt to latch. Using several hand positions to optimize optimal latching were unsuccessful. Attempted to effectively latch to the right breast with the same unsuccessful result. Mother brought a nipple shield with her to use. Mother states she has a history of using a nipple shield with her first baby that she breastfed for 5 months. Reviewed good handwashing when or touching the breast/nipples to prevent infection. Assisted latching infant to the right breast with a nipple shield. Infant was maintaining latch and sucking while RN was in the room. Mother voiced understanding of responsive feedings, stimulating with skin to skin, hand expressed colostrum, touch, talking to infant to encourage if it has been 2 -3 hours since the start of the last , to call if infant does not latch or there is discomfort with . Reported to the primary RN.
[2021-10-19] MEDS: HYDROcodone/acetaminophen (*CRX) 5-325 MG TABLET 1 TAB PO ×2 (16:56→23:03)
[2021-10-19] MEDS: POLYSACCHARIDE IRON COMPLEX 150 MG CAPSULE PO (16:56)
[2021-10-19] MEDS: DOCUSATE SODIUM 100 MG CAPSULE PO (16:56)
[2021-10-19] MEDS: KETOROLAC 30 MG/ML VIAL (*BKC) IV PUSH (16:57)
[2021-10-19] MEDS: IBUPROFEN 600 MG TABLET PO (23:05)
[2021-10-20] MEDS: IBUPROFEN 600 MG TABLET PO ×3 (04:56→19:41)
[2021-10-20] MEDS: HYDROcodone/acetaminophen (*CRX) 5-325 MG TABLET 1 TAB PO ×6 (04:56→23:15)
[2021-10-20 05:00] VITALS: BP 107/69; PULSE 81; RESP 16; TEMP 36.6
[2021-10-20 05:46] LABS: Hematocrit 29.1 % (37.0-47.0); Mean Corpuscular HGB Conc 30.9 g/dl (32-36); Mean Corpuscular Volume 84.1 fl (80-100); Platelet Count Result 186 k/mm3 (150-375); Red Blood Count 3.46 M/mm3 (4.2-5.4); Red Cell Distribution Width 15.1 % (11.5-14.5); White Blood Count 7.7 K/mm3 (4.5-10.0)
[2021-10-20 05:47] LABS: Basophils Percent Auto 0.3 % (0.2-1.2); Eosinophils Absolute Auto 0.1 K/mm3 (0-0.3); Eosinophils Percent Auto 0.9 % (0-4.4); Immature Granulocyte Absolute 0.03 K/mm3 (0.00-0.031); Immature Granulocyte Percent A 0.4 % (0-0.5); Lymphocytes Absolute Auto 1.82 K/mm3 (0.9-3.2); Lymphocytes Percent Auto 23.7 % (18.3-44.2); Mean Platelet Volume 10.2 fl (7.4-10.4); Monocytes Absolute Auto 0.5 K/mm3 (0.1-0.6); Neutrophils Absolute Auto 5.3 K/mm3 (1.3-6.7); Neutrophils Percent Auto 68.7 % (45.5-73.1)
--- NOTE | 2021-10-20 06:43 | PM.OBPNVD ---
OB - PN: Subj Subjective Date/time seen: 10/20/21 06:43 Patient comments: no complaints and pain well controlled OB - PN: Obj Data Labs CBC & Chem 7: 10/20/21 05:19 Labs: Laboratory Results - last 24 hr 10/20/21 05:19 WBC 7.7 RBC 3.46 L Hgb 9.0 L Hct 29.1 L MCV 84.1 MCH 26.0 MCHC 30.9 L RDW 15.1 H Plt Count 186 MPV 10.2 Immature Gran % (Auto) 0.4 Neut % (Auto) 68.7 Lymph % (Auto) 23.7 [place] % (Auto) 6.0 Eos % (Auto) 0.9 Baso % (Auto) 0.3 Lymph # (Auto) 1.82 [place] # (Auto) 0.5 Eos # (Auto) 0.1 Baso # (Auto) 0.0 Abs Immat Gran (auto) 0.03 Absolute Neuts (auto) 5.3 Absolute Nucleated RBC 0.0 Nucleated RBC % 0.0 OB - PN A/P Plan day: 1 Plan: routine care Time Spent With Patient Time: Total time spent is greater than 50% in coordination of care (as documented) at patient's floor/unit and/or counseling patient: Review of Systems Review of Systems: All systems reviewed & are unremarkable except as noted in HPI and below Exam Narrative: Incision CDI
--- NOTE | 2021-10-20 07:44 | PM.OBPNVD ---
OB - PN: Subj Subjective Date/time seen: 10/20/21 07:44 Patient comments: no complaints, pain well controlled, tolerating diet and flatus present OB - PN: Obj Data Labs CBC & Chem 7: 10/20/21 05:19 Labs: Laboratory Results - last 24 hr 10/20/21 05:19 WBC 7.7 RBC 3.46 L Hgb 9.0 L Hct 29.1 L MCV 84.1 MCH 26.0 MCHC 30.9 L RDW 15.1 H Plt Count 186 MPV 10.2 Immature Gran % (Auto) 0.4 Neut % (Auto) 68.7 Lymph % (Auto) 23.7 [place] % (Auto) 6.0 Eos % (Auto) 0.9 Baso % (Auto) 0.3 Lymph # (Auto) 1.82 [place] # (Auto) 0.5 Eos # (Auto) 0.1 Baso # (Auto) 0.0 Abs Immat Gran (auto) 0.03 Absolute Neuts (auto) 5.3 Absolute Nucleated RBC 0.0 Nucleated RBC % 0.0 OB - PN A/P Plan day: 1 Comments: Post Op LTCS - no problems, routine recovery Time Spent With Patient Time: Total time spent is greater than 50% in coordination of care (as documented) at patient's floor/unit and/or counseling patient: Exam Const: General: cooperative, healthy appearing, comfortable and no acute distress Resp: Auscultation: no crackles, no rales, no rhonchi and no wheezes Cardio: Rhythm: regular rhythm Heart sounds: no click and no murmurs GI: Inspection: non-distended Auscultation: normal bowel sounds Extrem: General: normal to inspection, no pedal edema and no calf tenderness
[2021-10-20 08:00] VITALS: PULSE 73; RESP 18; O2SAT 100
[2021-10-20 08:35] VITALS: BP 124/62; PULSE 73; RESP 18; TEMP 36.4; O2SAT 100
[2021-10-20] MEDS: SERTRALINE HCL 50 MG TABLET PO (08:48)
[2021-10-20] MEDS: MULTIVIT/MIN/PREN/FOL AC/IRON TABLET 1 TAB PO (08:48)
[2021-10-20] MEDS: POLYSACCHARIDE IRON COMPLEX 150 MG CAPSULE PO ×2 (08:48→16:13)
[2021-10-20] MEDS: DOCUSATE SODIUM 100 MG CAPSULE PO ×2 (08:48→16:13)
--- NOTE | 2021-10-20 12:40 | PC.NURSE ---
[id number] Consulted with patient to assess needs related to . Mother led the conversation with her experience feeding her so far. Mother works well with her using the nipple shield as a tool to train infant for a wide open gape, then latching to the breast. latched optimally to the right breast in football position. Education given to mother of how to visualize suck/swallow ratios and drinking at the breast. was able to maintain latch without discomfort to mother. Nipple care reviewed with optimal latch and good positioning. Reviewed good handwashing when or touching the breast/nipples to prevent infection. Mother demonstrated understanding of stimulating to drink at the breast rather than rest. Mother also pumps consistently to stimulate milk production. Resources used to facilitate learning were used with the mom and baby guide. Mother voiced understanding of responsive feedings, stimulating with skin to skin, hand expressed colostrum, touch, talking to to encourage if it has been 2 -3 hours since the start of the last , to call if does not latch or there is discomfort with . Reported to the primary RN.
[2021-10-20 19:00] VITALS: BP 127/70; PULSE 77; RESP 18; TEMP 36.6
[2021-10-20] MEDS: LANOLIN (LANSINOH) 7.5 GM CREAM 1 APPLIC TOPICAL (19:42)
[2021-10-21] MEDS: IBUPROFEN 600 MG TABLET PO (05:19)
[2021-10-21] MEDS: HYDROcodone/acetaminophen (*CRX) 5-325 MG TABLET 1 TAB PO ×2 (05:31→09:03)
[2021-10-21 08:00] VITALS: BP 124/68; PULSE 73; RESP 18; TEMP 36.8; O2SAT 100
--- NOTE | 2021-10-21 08:00 | PC.NURSE ---
Patient viewed the discharge video Mother & Baby Care, The First Two Weeks . Patient was given the opportunity and encouraged to ask questions. Patient verbalized understanding of information shared and has been given the mother/baby guide for home reference.
--- NOTE | 2021-10-21 08:24 | PM.OBPNVD ---
OB - PN: Subj Subjective Date/time seen: 10/21/21 08:24 Patient comments: no complaints, pain well controlled, incisional pain, tolerating diet and flatus present OB - PN: Obj Data Labs CBC & Chem 7: 10/20/21 05:19 OB - PN A/P Plan day: 2 Plan: routine care Comments: POD#2 LTCS - no problems, Time Spent With Patient Time: Total time spent is greater than 50% in coordination of care (as documented) at patient's floor/unit and/or counseling patient: Exam Const: General: comfortable, no acute distress and alert Resp: Effort & Inspection: normal respiratory effort Auscultation: no crackles, no rales and no rhonchi Cardio: Rate: regular rate Heart sounds: no click, no murmurs and no rubs GI: Inspection: non-distended GI Palp: No Tenderness to palpation present (GI) Auscultation: normal bowel sounds Other: Incision - CDI Extrem: General: normal to inspection, no pedal edema and no calf tenderness
--- NOTE | 2021-10-21 08:24 | PM.OBDSVD ---
DS: Admitting Diagnosis Discharge Date 10/21/2021 Admitting Diagnosis term gestation OB - DS: Summary OB Procedures : None OB Procedures Intrapartum: OB Procedures: : None Peripartum Data Procedures: Procedures Operation Date: 10/19/21 07:30 Actual Procedure Side Surgeon p Repeat Section Kaitlynn Foss MD Time Spent with Patient Time attestation: Total time spent providing and/or coordinating discharge services: Discharge Plan Discharge Discharging Clinician: Kaitlynn Foss Patient Disposition: Home, Self-Care Activity: pelvic rest Diet: regular Patient Instructions: Antibiotic Form Stand Alone Forms: General Discharge Information Follow-up/Referrals: Kaitlynn Foss MD [Physician] - Discharge Medications: New hydrocodone-acetaminophen 5-325 mg tablet 1 tablet PO Q4H PRN (Reason: pain) Qty: 25 RF: 0 Continued sertraline 50 mg tablet 50 mg PO DAILY RF: 0 ursodiol 300 mg Capsule 300 mg PO BID RF: 0 prenat.vits,justin,raj-ovpl-wzhis Tablet 1 tablet PO DAILY RF: 0 Date of admission: 10/19/21 05:22 Primary Care Provider: Elle Gunter Admitting Provider: Kaitlynn Fsos Attending physician on admission: Kaitlynn Foss Condition: Stable
[2021-10-21] MEDS: SERTRALINE HCL 50 MG TABLET PO (09:03)
[2021-10-21] MEDS: DOCUSATE SODIUM 100 MG CAPSULE PO (09:03)
[2021-10-21] MEDS: POLYSACCHARIDE IRON COMPLEX 150 MG CAPSULE PO (09:03)
[2021-10-21] MEDS: SIMETHICONE 80 MG TAB.CHEW PO (09:03)
[2021-10-21] MEDS: MULTIVIT/MIN/PREN/FOL AC/IRON TABLET 1 TAB PO (09:03)
--- NOTE | 2021-10-21 10:04 | PC.NURSE ---
Self care and infant care discharge instructions given including follow up visit date and time. Mother verbalized understanding. No questions or concerns voiced. Very pleasant and cooperative.
--- NOTE | 2021-10-21 10:25 | WPDANLDNPN2 ---
Anes-Prog Note L&D-Neuraxial Date/Time: 10/21/21 10:25 Neuraxial medications: intrathecal PF morphine Opiod-related complaints: none Patient feedback: Patient satisfied with post-operative pain management.
--- NOTE | 2021-10-21 10:25 | WPDANESPN ---
Anes - Prog Note Post-Op Date/Time: 10/21/21 10:25 Cardiovascular status: normal Respiratory status: normal Airway patency: baseline Mental status: baseline Post-Op hydration status: normal Vital Signs: Last Vital Signs Temp 36.8 C 10/21/21 08:00 Pulse 73 10/21/21 08:00 Resp 18 10/21/21 08:00 BP 124/68 10/21/21 08:00 Pulse Ox 100 10/21/21 08:00 Pain Score (VAS): 0 I/O: Intake & Output 10/20/21 10/21/21 10/21/21 23:59 07:59 15:59 Intake Total 480 100 Balance 480 100 Laboratory Tests 10/20/21 05:19 Post-procedural complaints: none Patient Feedback: Patient satisfied with anesthetic care.
[2021-10-23 09:49] VITALS: BP 119/67; PULSE 85; RESP 20; TEMP 37.3; O2SAT 100
== END 2021-10-21 12:14 | disposition home or self-care (01) | DRG 786 ==
LOC: ANHLDR 05:26 → ANHOB2 11:27
PROVIDERS: Admitting Provider Obstetrics & Gynecology; PCP Family Medicine; Visit Provider Obstetrics & Gynecology
PROC: 10D00Z1 Extraction of Products of Conception, Low, Open Approach (ICD-10-PCS; CPT 59514; principal; 2021-10-19 07:30)
DX: O34.219 Maternal care for unspecified type scar from previous cesarean delivery (principal); O26.62 Liver and biliary tract disorders in childbirth; K83.1 Obstruction of bile duct; Z3A.38 38 weeks gestation of pregnancy; Z37.0 Single live birth; K21.9 Gastro-esophageal reflux disease without esophagitis; O99.214 Obesity complicating childbirth; E66.01 Morbid (severe) obesity due to excess calories; O24.429 Gestational diabetes mellitus in childbirth, unspecified control; O69.81X0 Labor and delivery complicated by cord around neck, without compression, not applicable or unspecified
CPT/HCPCS: 36415; 82948; 85025; 85027; 86592; 86850; 86900; 86901; A9270; J0690; J1885; J2274; J2370; J2405; J2590; J7120

== ENCOUNTER 2022-10-09 11:25 | Outpatient (CLI) | payer OTHER, SELFPAY ==
--- NOTE | ~2022-10-09 | XR_ITS ---
EXAM: XR lumbar spine min 4V DATE: 10/09/2022 11:41 HISTORY: Low back pain no injury . COMPARISON: None available. FINDINGS: Cholecystectomy clips. 5 nonrib-bearing lumbar-type vertebral bodies. Pedicles intact. Lum bar straightening. Normal vertebral body alignment. Vertebral body heights preserved. Disc spaces vinh ntained. Normal facets and posterior elements. No fracture or dislocation. IMPRESSION: Loss of the normal lumbar lordosis, which can occur with positioning or muscle spasm. Oth erwise normal lumbar spine radiograph findings. Reviewed, dictated and finalized at location K. IMPRESSION: Loss of the normal lumbar lordosis, which can occur with positionin g or muscle spasm. Otherwise normal lumbar spine radiograph findings.
== END 2022-10-09 11:26 ==
PROVIDERS: PCP Family Medicine; Visit Provider Chiropractor
DX: M54.50 Low back pain, unspecified (principal); R93.7 Abnormal findings on diagnostic imaging of other parts of musculoskeletal system
CPT/HCPCS: 72110

== ENCOUNTER 2023-01-02 12:25 | Emergency (ER) | payer OTHER, SELFPAY ==
--- NOTE | ~2023-01-02 | XR_ITS ---
EXAMINATION: XR foot LT min 3V DATE: 01/02/2023 13:01 INDICATION: Left foot pain. Fall. TECHNIQUE: 4 views of left foot were obtained. COMPARISON: None. FINDINGS: There is a nondisplaced oblique fracture of metaphysis of fifth proximal phalanx. Joint spa delia are normal. IMPRESSION: 1. Nondisplaced oblique fracture of metaphysis of fifth proximal phalanx. Reviewed, dictated and finalized at location B.
--- NOTE | ~2023-01-02 | XR_ITS ---
EXAMINATION: XR foot RT min 3V DATE: 01/02/2023 13:02 INDICATION: Right foot pain. Fall. TECHNIQUE: 4 views of right foot were obtained. COMPARISON: None. FINDINGS: Bone alignment is normal. There is a nondisplaced fracture of lateral base of fifth distal phalanx. There is mild osteoarthritis of first metatarsophalangeal joint. IMPRESSION: 1. Nondisplaced fracture of lateral base of fifth distal phalanx. Reviewed, dictated and finalized at location B.
--- NOTE | ~2023-01-02 | XR_ITS ---
EXAMINATION: XR knee RT 3V DATE: 01/02/2023 13:01 INDICATION: Anterior right knee pain post fall 2 days prior TECHNIQUE: Anteroposterior, sunrise and crosstable lateral views of the right knee were obtained COMPARISON: None. FINDINGS: Alignment is normal. No fracture. Joint spaces appear normal on nonweightbearing imaging. No joint e ffusion/layering lipohemarthrosis. Mild prepatellar soft tissue swelling. IMPRESSION: 1. No right knee joint effusion or osseous abnormality. Reviewed, dictated and finalized at location A.
--- NOTE | 2023-01-02 12:29 | ED.LOWEXIN ---
HPI - Extremity Injury (Lower) General Chief Complaint: Extremity Injury, Lower Stated Complaint: L FOOT/TOE & R KNEE INJURY Time Seen by Provider: 01/02/23 12:29 History of Present Illness HPI Narrative: Patient is a 32-year-old female presents to urgent care with complaints of right knee pain, right great toe pain, and left foot pain. Patient states that she fell down wooden steps at [facility] on Saturday has been having increasing bruising and pain to the areas. Patient states that she has taken ibuprofen but has not wrapped the feet or knee. Patient has been ambulating with increased pain and difficulty. Patient states that pain is worsened with ambulation and weight-bearing. Stating the left foot hurts even at rest. Patient denies any history of foot fracture or knee fracture in the past. No other acute complaints. No acute distress noted. Patient aware of the plan of care. Some parts of this dictation were generated by voice recognition software and may contain typographical and/or grammatical inaccuracies. Related Data Home Medications Medication Instructions Recorded Confirmed sertraline 50 mg tablet 50 mg PO DAILY 08/03/20 01/02/23 Allergies Allergy/AdvReac Type Severity Reaction Status Date / Time Sulfa (Sulfonamide Allergy Severe Hives Verified 01/02/23 12:53 Antibiotics) azithromycin Allergy Abdominal Verified 01/02/23 12:53 Pain Review of Systems Review of Systems: CONSTITUTIONAL: Denies fever, chills, or sweats. EYES: Denies visual changes, redness, or discharge. ENT: Denies rhinorrhea, congestion, sore throat, or otalgia. CARDIOVASCULAR: Denies chest pain, palpitations, or edema. RESPIRATORY: Denies cough or dyspnea. GASTROINTESTINAL: Denies abdominal pain, nausea, vomiting, or diarrhea. GENITOURINARY: Denies dysuria or hematuria. SKIN: Denies rash or itching. MUSCULOSKELETAL: Reports of right knee pain, right great toe pain and left foot pain NEUROLOGIC: Denies headache, numbness, or weakness. All other systems reviewed are negative, except as documented in HPI. [facility] Past Medical History Medical History (Updated 01/02/23 @ 13:25 by GERALDINE Bustos) Anxiety Depression Gestational diabetes History of gastroesophageal reflux (GERD) Morbid obesity and not yet delivered STD (female) Surgical History Surgical History History of 2018 Hx laparoscopic cholecystectomy 09/15/20 Hx of tonsillectomy 1995 Family History Family History (Updated 10/06/21 @ 13:35 by Jered Barreto RN) Mother Rheumatoid arthritis Grandparent Malignant neoplasm of prostate, Onset Age: 60 Diabetes mellitus Depression Family history of obesity Family history of type 2 diabetes mellitus Family history of alcoholism Hypertension Lung cancer Father Anxiety Depression Family history of alcoholism Hypertension Other Family history of multiple sclerosis Social History Social History Smoking status: Never smoker Second hand tobacco smoke exposure: No Alcohol intake: former Alcohol use details: HASN'T HAD ANY IN 6 MONTHS Substance use: never Substance use type: does not use Other substance usage details: Low carb diet Living arrangements: with family Occupation/Education: occupation 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 There is no relevant family history pertinent to the patient complaint. Exam Narrative: GENERAL: This is a well-nourished, well-developed patient, in no apparent distress. HEAD: normocephalic, atraumatic. EYES: PERRL. Sclera clear/white. Vision is grossly intact. EAR
[2023-01-02 12:35] VITALS: BP 137/91; PULSE 78; RESP 18; TEMP 36.4; O2SAT 100
--- NOTE | 2023-01-02 14:31 | PC.NURSE ---
1320- pt declines bucky taping toes at present, and declines any post op shoes, states that she will tape them when she gets home after work today (she is going to go back to work after discharge from here)- due to not wanting to take tennis shoe off and put it back on again. and pt states that she has samuel wraps at home to place on her knee. 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 pt encouraged to get some hard sole shoes to wear to present rolling of toes while walking, pt verbalized understanding. pt also states that she does not need a work note to help if she finds the need to sit and elevate legs.
== END 2023-01-02 13:26 | disposition home or self-care (01) ==
PROVIDERS: Emergency Provider Nurse Practitioner Family; PCP Family Medicine
DX: S92.534A Nondisplaced fracture of distal phalanx of right lesser toe(s), initial encounter for closed fracture (principal); S92.515A Nondisplaced fracture of proximal phalanx of left lesser toe(s), initial encounter for closed fracture; W10.9XXA Fall (on) (from) unspecified stairs and steps, initial encounter; M25.561 Pain in right knee; K21.9 Gastro-esophageal reflux disease without esophagitis; E66.01 Morbid (severe) obesity due to excess calories; Z68.41 Body mass index [BMI] 40.0-44.9, adult; F41.9 Anxiety disorder, unspecified; F32.A Depression, unspecified
CPT/HCPCS: 73562; 73630; 99214; G0463